=== PATIENT | female | born 1995 | race Caucasian/White ===

== ENCOUNTER 2020-07-16 12:11 | Emergency (ER) | payer BC ==
[2020-07-16 12:21] VITALS: BP 124/85; PULSE 65; RESP 18; TEMP 97.5
--- NOTE | 2020-07-16 13:03 | ED ---
Extremity Problem HPI - General Chief complaint: Extremity Problem,Nontraumatic Stated complaint: right side numbness & body locked up Time Seen by Provider: 07/16/20 12:39 Source: patient Mode of arrival: wheelchair Limitations: no limitations - History of Present Illness Initial comments: Patient is a 24-year-old female presenting to emergency Department with complaints of right sided neck tightness and started this morning. Patient states she went to stretch his morning and felt instant muscle tightness in the right side of her neck and upper trap. Patient states she thought it was getting better but states throughout the day has been getting worse and now she is having some pain down her right arm. Patient denies any history of neck surgeries, shoulder surgeries. She denies any falls or trauma. She denies any fever or chills. She has no further complaints at this time. Upon arrival to the ER, her vitals are stable. - Related Data Previous Rx's Medication Instructions Recorded Cyclobenzaprine [Flexeril] 5 mg PO BID PRN #10 tablet 07/16/20 Allergies Allergy/AdvReac Type Severity Reaction Status Date / Time Sulfa (Sulfonamide Allergy Nausea & Verified 07/16/20 12:21 Antibiotics) Vomiting Review of Systems ROS Statement: Those systems with pertinent positive or pertinent negative responses have been documented in the HPI. ROS Other: All systems not noted in ROS Statement are negative. Past Medical History Past Medical History: Hypertension History of Any Multi-Drug Resistant Organisms: None Reported Past Surgical History: No Surgical Hx Reported Past Psychological History: No Psychological Hx Reported Smoking Status: Never smoker Past Alcohol Use History: None Reported Past Drug Use History: None Reported General Exam - General Exam Comments Initial Comments: GENERAL: Patient is well-developed and well-nourished. Patient is nontoxic and in no acute distress. HEAD: Atraumatic, normocephalic. EYES: Pupils equal round and reactive to light, extraocular movements intact, sclera anicteric, conjunctiva are normal. Eyelids were unremarkable. ENT: TMs normal, nares patent, oropharynx clear without exudates. Moist mucous membranes. NECK: Mild decreased range of motion with right cervical rotation and right lateral flexion., supple without lymphadenopathy or JVD. Pain with palpation of the right upper trapezius, muscle spasm present. LUNGS: Unlabored respirations. Breath sounds clear to auscultation bilaterally and equal. No wheezes rales or rhonchi. HEART: Regular rate and rhythm without murmurs, rubs or gallops. ABDOMEN: Soft, nontender, normoactive bowel sounds. No guarding, no rebound. No masses appreciated. : Deferred MUSCULOSKELETAL: Normal extremities with adequate strength and normal range of motion, no pitting or edema. No clubbing or cyanosis. NEUROLOGICAL: Patient is alert and oriented x 3. Motor and sensory are also intact. Symmetrical smile. Normal speech, normal gait. PSYCH: Normal mood, normal affect. SKIN: Warm, Dry, normal turgor, no rashes or lesions noted. Limitations: no limitations Course Vital Signs 07/16/20 12:18 Temperature 97.5 F L Pulse Rate 65 Respiratory 18 Rate Blood Pressure 124/85 O2 Sat by Pulse 100 Oximetry Medical Decision Making - Medical Decision Making Patient is a 24-year-old female presenting for right-sided neck pain times one day. Exam reveals a muscle spasm in the right upper trapezius. Her strength is adequate, no neuro deficits. Discussed with patient this is most likely a muscle strain, spasm from her stretching this morning. Recommended heat to the area, gentle stretching, ibuprofen. I will give her a few days of muscle relaxer take at nighttime. Patient is stable for discharge. She can follow-up with her PCP if symptoms persist. Patient is in agreement with this plan of care. Disposition Clinical Impression: Muscle spasm of right shoulder Disposition: HOME SELF-CARE Condition: Stable Instructions (If sedation given, give patient instructions): Muscle Spasm (ED) Additional Instructions: Please return to the Emergency Department if symptoms worsen or any other concerns. Use heat to the area, gentle stretching, trial of muscle relaxer and night. Follow up with PCP if needed. Prescriptions: Cyclobenzaprine [Flexeril] 5 mg PO BID PRN #10 tablet PRN Reason: Muscle Spasm Is patient prescribed a controlled substance at d/c from ED?: No Referrals: Nonstaff,Physician [Primary Care Provider] - 1-2 days
== END 2020-07-16 13:15 | disposition home or self-care (01) ==
LOC: EC 12:11
DX: M62.838 Other muscle spasm (principal); M54.2 Cervicalgia; Z88.2 Allergy status to sulfonamides
CPT/HCPCS: 99283